=== PATIENT | female | born 1990 | race Caucasian/White ===

== ENCOUNTER 2016-09-02 17:16 | Emergency (ER) | payer OTHER ==
[2016-09-02 17:39] VITALS: BP 111/68; PULSE 65; TEMP 98.1; BMI 29.0
[2016-09-02] MEDS ORDERED: ACETAMINOPHEN 325 MG TABLET (FP) PO ONE (18:01)
[2016-09-02] MEDS ORDERED: SODIUM CHLORIDE 1,000 ML IV STA (18:01)
[2016-09-02] MEDS ORDERED: MAG HYDROX/AL HYDROX/SIMETH 30 ML UNIT-DOSE CUP PO ONE (18:01)
[2016-09-02] MEDS ORDERED: ONDANSETRON 4 MG/2 ML VIAL IVPB ONE (18:01)
[2016-09-02] MEDS ORDERED: FAMOTIDINE 20 MG/50 ML IVPB 50 ML IVPB ONE ×2 (18:01→18:15)
[2016-09-02] MEDS ORDERED: ACETAMINOPHEN 325 MG TABLET (FP) ONE (18:14)
[2016-09-02] MEDS ORDERED: MAG HYDROX/AL HYDROX/SIMETH 30 ML UNIT-DOSE CUP ONE (18:15)
[2016-09-02] MEDS ORDERED: ONDANSETRON 4 MG/2 ML VIAL ONE (18:15)
[2016-09-02 18:36] LABS: URINE APPEARANCE CLEAR; URINE BILIRUBIN NEGATIVE (NEGATIVE); URINE BLOOD NEGATIVE (NEGATIVE); URINE COLOR STRAW; URINE GLUCOSE (UA) NEGATIVE (NEGATIVE); URINE KETONE 1+ (NEGATIVE); URINE LEUK ESTERASE NEGATIVE (NEGATIVE); URINE NITRITE NEGATIVE (NEGATIVE); URINE PROTEIN NEGATIVE (NEGATIVE); URINE UROBILINOGEN NEGATIVE E.U./dl (0.2-1.0)
--- NOTE | 2016-09-02 18:41 | PDOC ---
History of Present Illness - General History Source: Patient, Parent(s) (Mother) Exam Limitations: No Limitations - History of Present Illness Initial Comments: 09/02/16 19:49 The patient is a 25 year old female, with no significant past medical history, who presents to the emergency department with nausea, vomiting and left lower quadrant pain for the past 2 days. The patient reports multiple episodes of both vomiting and diarrhea over the past 2 days. The patient reports feeling generally weak and reports a decreased appetite secondary to nausea and vomiting. The patient denies eating any bad foods, sick contacts or any recent travel. The patient denies fever, chills or any dysuria. The patient's mother is at the bedside. Allergies: None reported. Past Surgical History: None reported. Social History: Non smoker. Denies alcohol or drug use. PCP: Dr. Ishmael Groves <Antonella Kumar - Last Filed: 09/02/16 22:49> - General History Source: Patient Exam Limitations: No Limitations <Bubba Lama - Last Filed: 09/02/16 23:00> - General Chief Complaint: Pain, Acute Stated Complaint: STOMACH ACHE/VOMITING Time Seen by Provider: 09/02/16 17:48 Past History <Antonella Kumar - Last Filed: 09/02/16 22:49> - Psycho/Social/Smoking Cessation Hx Suicidal Ideation: No Smoking History: Current every day smoker Have you smoked in the past 12 months: Yes Number of Cigarettes Smoked Daily: 3 Information on smoking cessation initiated: No Hx Alcohol Use: No Drug/Substance Use Hx: No <Bubba Lama - Last Filed: 09/02/16 23:00> - Past Medical History Allergies/Adverse Reactions: Allergies Allergy/AdvReac Type Severity Reaction Status Date / Time No Known Allergies Allergy Verified 09/02/16 17:36 Home Medications: Ambulatory Orders Mag Hydrox/Al Hydrox/Simeth [Mylanta Suspension -] 30 ml PO Q6H PRN #1 bottle Naproxen [Naprosyn -] 500 mg PO BID PRN #20 tablet 09/02/16 Ondansetron HCl [Zofran] 4 mg PO Q6H PRN #20 tablet 09/02/16 Ranitidine HCl [Zantac] 150 mg PO BID PRN #20 tablet 09/02/16 Review of Systems - Review of Systems Able to Perform ROS?: Yes Comments:: 09/02/16 19:46 GENERAL/CONSTITUTIONAL: +Generalized weakness, decreased appetite. No fever or chills. HEAD, EYES, EARS, NOSE AND THROAT: No change in vision. No ear pain or discharge. No sore throat. CARDIOVASCULAR: No chest pain or shortness of breath. RESPIRATORY: No cough, wheezing, or hemoptysis. GASTROINTESTINAL: +Nausea, vomiting, diarrhea, abdominal pain. No constipation. GENITOURINARY: No dysuria, frequency, or change in urination. MUSCULOSKELETAL: No joint or muscle swelling or pain. No neck or back pain. SKIN: No rash. NEUROLOGIC: No headache, vertigo, loss of consciousness, or change in strength/ sensation. ENDOCRINE: No increased thirst. No abnormal weight change. HEMATOLOGIC/LYMPHATIC: No anemia, easy bleeding, or history of blood clots. ALLERGIC/IMMUNOLOGIC: No hives or skin allergy. <Antonella Kumar - Last Filed: 09/02/16 22:49> *Physical Exam - Vital Signs Last Vital Signs Temp Pulse Resp BP Pulse Ox 98.1 F 65 19 111/68 100 09/02/16 17:36 09/02/16 17:36 09/02/16 17:36 09/02/16 17:36 09/02/16 17:36 - Physical Exam Comments: 09/02/16 19:46 GENERAL: Awake, alert, and fully oriented, in no acute distress. HEAD: No signs of trauma. EYES: PERRLA, EOMI, sclera anicteric, conjunctiva clear. ENT: Dry mucosa. Auricles normal inspection, hearing grossly normal, nares patent, oropharynx clear without exudates. NECK: Normal ROM, supple, no lymphadenopathy, JVD, or masses. LUNGS: Breath sounds equal, clear to auscultation bilaterally. No wheezes, and no crackles. HEART: Regular rate and rhythm, normal S1 and S2, no murmurs, rubs or gallops. ABDOMEN: LLQ tenderness to palpation. Soft, normoactive bowel sounds. No guarding, no rebound. No masses. EXTREMITIES: Normal range of motion, no edema. No clubbing or cyanosis. No cords , erythema, or tenderness. NEUROLOGICAL: Cranial nerves II through XII intact. Normal speech, normal gait. SKIN: Warm, dry, normal turgor, no rashes or lesions noted. <Antonella Kumar - Last Filed: 09/02/16 22:49> - Vital Signs Last Vital Signs Temp Pulse Resp BP Pulse Ox 98.1 F 65 19 111/68 100 09/02/16 17:36 09/02/16 17:36 09/02/16 17:36 09/02/16 17:36 09/02/16 17:36 <Bubba Lama - Last Filed: 09/02/16 23:00> ED Treatment Course - LABORATORY CBC & Chemistry Diagram: 09/02/16 18:12 09/02/16 18:12 - ADDITIONAL ORDERS Additional order review: Laboratory Results 09/02/16 09/02/16 18:12 18:12 Sodium 139 Potassium 3.3 L Chloride 103 Carbon Dioxide 25 Anion Gap 11 BUN 6 L Creatinine 0.7 Creat Clearance w eGFR > 60 Random Glucose 90 Calcium 9.1 Magnesium 1.7 L Total Bilirubin 0.5 AST 12 L ALT 15 Alkaline Phosphatase 68 Total Protein 8.0 Albumin 4.4 Lipase 102 Serum , Qual Negative Urine Color Straw Urine Appearance Clear Urine pH 6.0 Ur Specific [place] 1.003 Urine Protein Negative Urine Glucose (UA) Negative Urine Ketones 1+ H Urine Blood Negative Urine Nitrite Negative Urine Bilirubin Negative Urine Urobilinogen Negative Ur Leukocyte Esterase Negative 09/02/16 18:12 RBC 3.89 MCV 99.2 H MCHC 34.4 RDW 12.5 MPV 9.3 Neutrophils % 71.0 Lymphocytes % 22.7 Monocytes % 5.9 Eosinophils % 0.1 Basophils % 0.3 - Medications Given in the ED: ED Medications Discontinued Medications Generic Name Dose Route Start Last Admin Trade Name Tonyq PRN Reason Stop Dose Admin Acetaminophen 650 mg 09/02/16 18:01 09/02/16 18:24 Tylenol - PO 09/02/16 18:02 650 mg ONCE ONE Administration Al Hydroxide/Mg Hydroxide 30 ml 09/02/16 18:01 09/02/16 18:24 Mylanta Oral Suspension - PO 09/02/16 18:02 30 ml ONCE ONE Administration Famotidine/Sodium Chloride 50 mls @ 100 mls/hr 09/02/16 18:01 09/02/16 18:28 Pepcid 20 Mg Premixed Ivpb - IVPB 09/02/16 18:30 100 mls/hr ONCE ONE Administration Sodium Chloride 1,000 mls @ 1,000 mls/hr 09/02/16 18:01 09/02/16 18:28 Normal Saline - IV 09/02/16 19:00 1,000 mls/hr ASDIR STA Administration Ondansetron HCl 4 mg 09/02/16 18:01 09/02/16 18:24 Zofran Injection IVPB 09/02/16 18:02 4 mg ONCE ONE Administration <Antonella Kumar - Last Filed: 09/02/16 22:49> - LABORATORY CBC & Chemistry Diagram: 09/02/16 18:12 09/02/16 18:12 - RADIOLOGY Radiology Studies Ordered: Category Date Time Status ABDOMEN & PELVIS CT WITH CONTR [CT] Stat CT Scan 09/02/16 18:05 Ordered - Medications Given in the ED: ED Medications Discontinued Medications Generic Name Dose Route Start Last Admin Trade Name Tonyq PRN Reason Stop Dose Admin Acetaminophen 650 mg 09/02/16 18:01 09/02/16 18:24 Tylenol - PO 09/02/16 18:02 650 mg ONCE ONE Administration Al Hydroxide/Mg Hydroxide 30 ml 09/02/16 18:01 09/02/16 18:24 Mylanta Oral Suspension - PO 09/02/16 18:02 30 ml ONCE ONE Administration Ondansetron HCl 4 mg 09/02/16 18:01 09/02/16 18:24 Zofran Injection IVPB 09/02/16 18:02 4 mg ONCE ONE Administration <Bubba Lama - Last Filed: 09/02/16 23:00> Medical Decision Making - Medical Decision Making 09/02/16 21:05 EXAM: CT/ABDOMEN & PELVIC CT WITH CONTR Reviewed By: Dr. Junior Ferrer IMPRESSION: Masslike density in the right adnexa measuring 4 x 3.4 cm versus a prominent ovary. Bilateral adnexal cystic densities, as described above. Minimal free fluid in the cul-de-sac. Small amount of free fluid in the endometrial cavity. Further evaluation with pelvic ultrasound, transabdominal and transvaginal recommended. EXAM: US/TRANSVAGINAL ULTRASOUND Reviewed By: Dr. Junior Ferrer IMPRESSION: Fibroid uterus, as described above. Both ovaries appear unremarkable with bilateral small simple cysts/follicles identified and with normal vascular flow. <Antonella Kumar - Last Filed: 09/02/16 22:49> - Medical Decision Making 09/02/16 18:27 A portion of this note was documented by scribe services under my direction. I have reviewed the details of the note, within reason, and agree with the documentation with the following case summary and management plan written by me. Patient treated in the ED. Nursing notes are reviewed and incorporated into the medical decision-making. Vital signs reviewed. Peripheral IV access obtained by the nurse, laboratory studies are drawn and sent, reviewed and interpreted by myself. Vital Signs Temp Pulse Resp BP Pulse Ox 98.1 F 65 19 111/68 100 09/02/16 17:36 09/02/16 17:36 09/02/16 17:36 09/02/16 17:36 09/02/16 17:36 25-year-old female with no past medical history presents with left lower quadrant pain, nausea, vomiting, diarrhea for the last 2 days. Denies sick contacts, recent travels. Denies fevers. Denies bad foods. Differential includes gastroenteritis, colitis. We'll obtain labs, CAT scan abdomen pelvis. Treat symptoms and reassess. 09/02/16 22:53 CBC, BMP 09/02/16 18:12 09/02/16 18:12 CMP Sodium 139 mmol/L (136-145) 09/02/16 18:12 Potassium 3.3 mmol/L (3.5-5.1) L 09/02/16 18:12 Chloride 103 mmol/L (98-107) 09/02/16 18:12 Carbon Dioxide 25 mmol/L (21-32) 09/02/16 18:12 Anion Gap 11 (8-16) 09/02/16 18:12 BUN 6 mg/dL (7-18) L 09/02/16 18:12 Creatinine 0.7 mg/dL (0.55-1.02) 09/02/16 18:12 Creat Clearance w eGFR > 60 (>60) 09/02/16 18:12 Random Glucose 90 mg/dL (74-106) 09/02/16 18:12 Calcium 9.1 mg/dL (8.5-10.1) 09/02/16 18:12 Magnesium 1.7 mg/dL (1.8-2.4) L 09/02/16 18:12 Total Bilirubin 0.5 mg/dL (0.2-1.0) 09/02/16 18:12 AST 12 U/L (15-37) L 09/02/16 18:12 ALT 15 U/L (12-78) 09/02/16 18:12 Alkaline Phosphatase 68 U/L (45-117) 09/02/16 18:12 Total Protein 8.0 g/dl (6.4-8.2) 09/02/16 18:12 Albumin 4.4 g/dl (3.4-5.0) 09/02/16 18:12 Lipase 102 U/L (73-393) 09/02/16 18:12 Serum , Qual Negative 09/02/16 18:12 Urine Test Results Urine Color Straw 09/02/16 18:12 Urine Appearance Clear 09/02/16 18:12 Urine pH 6.0 (5.0-8.0) 09/02/16 18:12 Ur Specific [place] 1.003 (1.001-1.035) 09/02/16 18:12 Urine Protein Negative (NEGATIVE) 09/02/16 18:12 Urine Glucose (UA) Negative (NEGATIVE) 09/02/16 18:12 Urine Ketones 1+ (NEGATIVE) H 09/02/16 18:12 Urine Blood Negative (NEGATIVE) 09/02/16 18:12 Urine Nitrite Negative (NEGATIVE) 09/02/16 18:12 Urine Bilirubin Negative (NEGATIVE) 09/02/16 18:12 Ur Leukocyte Esterase Negative (NEGATIVE) 09/02/16 18:12 CAT scan abdomen pelvis reviewed. Demonstrates masslike density in the right adnexa measuring 4 x 3.4 cm versus a prominent ovary. Bilateral adnexal cystic densities as described. Transvaginal ultrasound obtained given the findings on CAT scan. Demonstrates ovarian cysts and fibroids. Patient's was reassessed and she reports feeling significant better. I instructed the patient that her CAT scan ultrasound findings likely represent fibroids and ovarian cyst. Patient's mother is at the bedside and reports that she has a strong family history of this. They have an education consultant and labor relations or personnel negotiator that they can follow-up with. Given these findings, patient may potentially be having gastroenteritis. We'll discharge patient with return precautions given. I discussed the physical exam findings, ancillary test results and final diagnoses with the patient. I answered all of the patient's questions. The patient was satisfied with the care received and felt comfortable with the discharge plan and treatment plan. The patient will call their primary care physician within 24 hours to arrange follow-up and will return to the Emergency Department with any new, persistant or worsening symptoms. <Bubba Lama - Last Filed: 09/02/16 23:00> *DC/Admit/Observation/Transfer - Attestations Scribe Attestion: 09/02/16 19:43 Documentation prepared by Antonella Kumar, acting as medical liaison for Bubba Lama MD. <Antonella Kumar - Last Filed: 09/02/16 22:49> - Discharge Dispostion Admit: No <uBbba Lama - Last Filed: 09/02/16 23:00> Diagnosis at time of Disposition: Gastroenteritis Fibroid Qualifiers: Uterine leiomyoma location: unspecified location Qualified Code(s): D25.9 - Leiomyoma of uterus, unspecified - Discharge Dispostion Disposition: HOME Condition at time of disposition: Improved - Prescriptions Prescriptions: Mag Hydrox/Al Hydrox/Simeth [Mylanta Suspension -] 30 ml PO Q6H PRN #1 bottle PRN Reason: Abdominal Pain Naproxen [Naprosyn -] 500 mg PO BID PRN #20 tablet PRN Reason: Pain Ranitidine HCl [Zantac] 150 mg PO BID PRN #20 tablet PRN Reason: Abdominal Pain Ondansetron HCl [Zofran] 4 mg PO Q6H PRN #20 tablet PRN Reason: Nausea - Referrals Referrals: Ishmael Groves MD [Primary Care Provider] - - Patient Instructions Printed Discharge Instructions: DI for Uterine Fibroids, Facts About Fibroids, DI for Ovarian Cyst, DI for Viral Gastroenteritis -- Adult Additional Instructions: Please drink plenty of fluids and rest. Please take the medications as prescribed. Follow-up with your education consultant and labor relations or personnel negotiator.
[2016-09-02 18:44] LABS: BASOPHIL 0.3 % (0-2.0); EOSINOPHIL 0.1 % (0-4.5); MCH 34.1 pg (25.7-33.7); MCHC 34.4 g/dl (32.0-36.0); MEAN CELL VOLUME 99.2 fl (80-96); MEAN PLT VOLUME 9.3 fl (7.5-11.1); PLATELET COUNT 219 K/MM3 (134-434); RDW 12.5 % (11.6-15.6); WHITE BLOOD COUNT 8.7 K/mm3 (4.0-10.0)
[2016-09-02 19:10] LABS: ALBUMIN 4.4 g/dl (3.4-5.0); ALK PHOS 68 U/L (45-117); ANION GAP 11 (8-16); BILIRUBIN,TOTAL 0.5 mg/dL (0.2-1.0); CALCIUM 9.1 mg/dL (8.5-10.1); CO2 25 mmol/L (21-32); COCKROFT - GAULT 159.7235; CREATININE 0.7 mg/dL (0.55-1.02); GLUCOSE,RANDOM 90 mg/dL (74-106); MAGNESIUM 1.7 mg/dL (1.8-2.4); SGOT/AST 12 U/L (15-37); SGPT/ALT 15 U/L (12-78)
[2016-09-02 23:10] LABS: PLATELET COMMENT2 RARE GIANT PLTS; PLATELET ESTIMATE ADEQUATE (NORMAL)
== END 2016-09-02 23:27 | disposition home or self-care (01) ==
LOC: JER 17:16
PROC: 3E033GC Introduction of Other Therapeutic Substance into Peripheral Vein, Percutaneous Approach (ICD-10-PCS; principal; 2016-09-02)
DX: K52.9 Noninfective gastroenteritis and colitis, unspecified (principal); D25.9 Leiomyoma of uterus, unspecified
CPT/HCPCS: 36415; 74177-TC; 76830-TC; 80053; 81003; 83690; 83735; 84703; 85025; 87086; 96365; 96375; 99283-25

== ENCOUNTER 2016-10-14 04:54 | Emergency (ER) | payer OTHER ==
[2016-10-14 05:13] VITALS: BMI 28.3
[2016-10-14] MEDS ORDERED: FAMOTIDINE 20 MG/50 ML IVPB 50 ML IVPB ONE ×2 (05:20→05:32)
[2016-10-14] MEDS ORDERED: ONDANSETRON 4 MG/2 ML VIAL IVPUSH ONE (05:20)
[2016-10-14] MEDS ORDERED: PANTOPRAZOLE SODIUM 40 MG in SODIUM CHLORIDE 100 ML IVPB ONE (05:20)
[2016-10-14] MEDS ORDERED: MAG HYDROX/AL HYDROX/SIMETH 30 ML UNIT-DOSE CUP PO ONE (05:20)
[2016-10-14] MEDS ORDERED: SODIUM CHLORIDE 0.9% 1000 ML INFUS.BAG IV ONE (05:20)
[2016-10-14] MEDS ORDERED: PANTOPRAZOLE SODIUM 100 ML IVPB ONE (05:31)
[2016-10-14] MEDS ORDERED: MAG HYDROX/AL HYDROX/SIMETH 30 ML UNIT-DOSE CUP ONE (05:31)
[2016-10-14] MEDS ORDERED: ONDANSETRON 4 MG/2 ML VIAL ONE (05:32)
[2016-10-14] MEDS ORDERED: POTASSIUM CHLORIDE TABS 20 MEQ TABLET.ER (FP) PO ONE ×3 (06:17→06:30)
--- NOTE | 2016-10-14 06:17 | PDOC ---
History of Present Illness - General Chief Complaint: Nausea/Vomiting Stated Complaint: ABDOMINAL PAIN/VOMITING Time Seen by Provider: 10/14/16 05:18 - History of Present Illness Initial Comments: 10/14/16 05:30 CHIEF COMPLAINT: vomiting/diarrhea HISTORY OF PRESENT ILLNESS: 26 yo F with hx of gastritis presents to ED with abdominal pain, vomiting, and diarrhea since 11 pm last night. Patient reports that her last meal prior to the onset of pain and vomiting was chicken wings. She reports 4-5 episodes of vomiting and "way more episodes of diarrhea." She denies any fever or chills, recent travel or sick contacts. Patient was treated in this ER one month ago for the same. No recent travel or sick contacts. PAST MEDICAL HISTORY: Denies past medical history FAMILY HISTORY: Denies SOCIAL HISTORY: Denies tobacco, alcohol use. Daily marijuana use. SURGICAL HISTORY: Denies ALLERGIES: No known drug allergies REVIEW OF SYSTEMS General/Constitutional: Denies fever or chills. Denies weakness, weight change. HEENT: Denies change in vision. Denies ear pain or discharge. Denies sore throat. Cardiovascular: Denies chest pain or shortness of breath. Respiratory: Denies cough, wheezing, or hemoptysis. Gastrointestinal: Abdominal pain, vomiting, diarrhea. Denies constipation. Denies rectal bleeding. Genitourinary: Denies dysuria, frequency, or change in urination. Musculoskeletal: Denies joint or muscle swelling or pain. Denies neck or back pain. Skin and breasts: Denies rash. PHYSICAL EXAM General Appearance: Well-appearing, appropriately dressed. No apparent distress. HEENT: EOMI, PERRLA. No conjunctival pallor. No photophobia, scleral icterus. Respiratory/Chest: Lungs CTAB. Cardiovascular: RRR. S1, S2. Gastrointestinal/Abdominal: Epigastric tenderness. Hyperactive bowel sounds. Abdomen soft, non-distended. No organomegaly, pulsatile mass, guarding, hernia , hepatomegaly, splenomegaly. Musculoskeletal/Extremities: Normal inspection. FROM of all extremities, normal capillary refill. Pelvis Stable. No CVA tenderness. No tenderness to extremities, pedal edema, swelling, erythema or deformity. Integumentary: Appropriate color, dry, warm. 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 Fully oriented, alert. Appropriate mood/affect. Motor strength 5/5. No appreciable EOM palsy, facial droop or sensory deficit. Past History - Past Medical History Allergies/Adverse Reactions: Allergies Allergy/AdvReac Type Severity Reaction Status Date / Time No Known Allergies Allergy Verified 10/14/16 06:06 Home Medications: Ambulatory Orders Ciprofloxacin [Cipro -] 500 mg PO BID #14 tablet 10/14/16 Metronidazole [Flagyl -] 500 mg PO TID #21 tablet 10/14/16 - Psycho/Social/Smoking Cessation Hx Anxiety: No Suicidal Ideation: No Smoking History: Never smoked Have you smoked in the past 12 months: No Number of Cigarettes Smoked Daily: 3 Hx Alcohol Use: No Drug/Substance Use Hx: Yes (marijuana) Substance Use Type: None *Physical Exam - Vital Signs Last Vital Signs Temp Pulse Resp BP Pulse Ox 97.1 F L 74 20 113/87 99 10/14/16 05:09 10/14/16 05:09 10/14/16 05:09 10/14/16 05:09 10/14/16 05:09 ED Treatment Course - LABORATORY CBC & Chemistry Diagram: 10/14/16 05:50 10/14/16 07:52 Medical Decision Making - Medical Decision Making 10/14/16 06:39 26 yo F with no PMH presents to ED with abdominal pain, vomiting, and diarrhea since 11 pm last night. -CBC, CMP, lipase -IVF, Zofran, Pepcid, Protonix Patient reassessed, states she is still having pain to her abdomen after just having 2 episodes of diarrhea. Patient reports her nausea/vomiting has now resolved. -Loperamide 10/14/16 06:59 Patient continues to have epigastric tenderness. On reassessment patient now has RLQ TTP. Will reassess. 10/14/16 07:01 Case discussed in detail with oncoming emergency provider including history, physical exam and ancillary studies. In brief, this patient is being seen in the ED for a chief complaint of: I have completed the initial assessment interview note and have ordered the following labs: CBC, CMP, lipase, UA, Ucx I have reviewed the following results: none Pending results: all Plan for disposition as follows: pending Oncoming NPA Elvira has assumed care for the patient and will complete the evaluation and treatment. *DC/Admit/Observation/Transfer Diagnosis at time of Disposition: Colitis - Discharge Dispostion Disposition: HOME Condition at time of disposition: Improved - Prescriptions Prescriptions: Ciprofloxacin [Cipro -] 500 mg PO BID #14 tablet Metronidazole [Flagyl -] 500 mg PO TID #21 tablet - Referrals Referrals: Todd Kraft MD [Staff Physician] - Call tomorrow Ishmael Groves MD [Primary Care Provider] - - Patient Instructions Printed Discharge Instructions: DI for Colitis Additional Instructions: Discharge Instructions: -2 prescriptions were sent to your pharmacy; please take as prescribed for 7 days -Do not drink alcohol while taking the medications -Drink at least 64oz of fluids daily -Call Dr. Barnett on Monday to schedule follow up appointment -Return to the ER with any worsening or concerning symptoms
[2016-10-14] MEDS ORDERED: LOPERAMIDE HCL 2 MG CAPSULE PO ONE (06:21)
[2016-10-14 06:22] LABS: URINE APPEARANCE CLEAR; URINE BILIRUBIN NEGATIVE (NEGATIVE); URINE BLOOD NEGATIVE (NEGATIVE); URINE COLOR LTYELLOW; URINE GLUCOSE (UA) NEGATIVE (NEGATIVE); URINE KETONE 2+ (NEGATIVE); URINE LEUK ESTERASE NEGATIVE (NEGATIVE); URINE NITRITE NEGATIVE (NEGATIVE); URINE PROTEIN NEGATIVE (NEGATIVE); URINE UROBILINOGEN NEGATIVE E.U./dl (0.2-1.0)
--- NOTE | 2016-10-14 06:22 | PDOC ---
[id number] 10/14/16 05:09 10/14/16 05:09 10/14/16 05:09 10/14/16 05:09 10/14/16 05:11 ED Treatment Course - LABORATORY CBC & Chemistry Diagram: 10/14/16 05:50 10/14/16 07:52 - Medications Given in the ED: ED Medications Discontinued Medications Generic Name Dose Route Start Last Admin Trade Name Armando PRN Reason Stop Dose Admin Al Hydroxide/Mg Hydroxide 30 ml 10/14/16 05:20 10/14/16 05:25 Mylanta Oral Suspension - PO 10/14/16 05:21 30 ml ONCE ONE Administration Pantoprazole Sodium 40 mg/ 100 mls @ 200 mls/hr 10/14/16 05:20 10/14/16 06:05 Sodium Chloride IVPB 10/14/16 05:49 200 mls/hr ONCE ONE Administration Famotidine/Sodium Chloride 50 mls @ 100 mls/hr 10/14/16 05:20 10/14/16 05:30 Pepcid 20 Mg Premixed Ivpb - IVPB 10/14/16 05:49 100 mls/hr ONCE ONE Administration Ondansetron HCl 8 mg 10/14/16 05:20 10/14/16 05:25 Zofran Injection IVPUSH 10/14/16 05:21 8 mg ONCE ONE Administration Sodium Chloride 1,000 ml 10/14/16 05:20 10/14/16 05:30 Normal Saline - IV 10/14/16 05:21 1,000 ml ONCE ONE Administration Medical Decision Making - Medical Decision Making 10/14/16 06:22 agree with care from BOWEN Muniz *DC/Admit/Observation/Transfer Diagnosis at time of Disposition: Colitis - Discharge Dispostion Disposition: HOME Condition at time of disposition: Improved - Prescriptions Prescriptions: Ciprofloxacin [Cipro -] 500 mg PO BID #14 tablet Metronidazole [Flagyl -] 500 mg PO TID #21 tablet - Referrals Referrals: Todd Kraft MD [Staff Physician] - Call tomorrow Ishmael Groves MD [Primary Care Provider] - - Patient Instructions Printed Discharge Instructions: DI for Colitis Additional Instructions: Discharge Instructions: -2 prescriptions were sent to your pharmacy; please take as prescribed for 7 days -Do not drink alcohol while taking the medications -Drink at least 64oz of fluids daily -Call Dr. Barnett on Monday to schedule follow up appointment -Return to the ER with any worsening or concerning symptoms
[2016-10-14] MEDS ORDERED: LOPERAMIDE HCL 2 MG CAPSULE ONE (06:25)
[2016-10-14 06:51] LABS: BASOPHIL 0.3 % (0-2.0); MCHC 33.7 g/dl (32.0-36.0); MEAN CELL VOLUME 100.9 fl (80-96); MEAN PLT VOLUME 10.8 fl (7.5-11.1); NEUTROPHILS 83.4 % (42.8-82.8); PLATELET COUNT 175 K/MM3 (134-434); RDW 12.9 % (11.6-15.6); WHITE BLOOD COUNT 9.5 K/mm3 (4.0-10.0)
--- NOTE | 2016-10-14 07:45 | PDOC ---
ED Treatment Course - LABORATORY CBC & Chemistry Diagram: 10/14/16 05:50 10/14/16 07:52 - ADDITIONAL ORDERS Additional order review: Laboratory Results 10/14/16 05:58 Urine Color Ltyellow Urine Appearance Clear Urine pH 5.0 Urine Protein Negative Urine Glucose (UA) Negative Urine Ketones 2+ H Urine Blood Negative Urine Nitrite Negative Urine Bilirubin Negative Urine Urobilinogen Negative Ur Leukocyte Esterase Negative Urine HCG, Qual Negative - Medications Given in the ED: ED Medications Discontinued Medications Generic Name Dose Route Start Last Admin Trade Name Armando PRN Reason Stop Dose Admin Al Hydroxide/Mg Hydroxide 30 ml 10/14/16 05:20 10/14/16 05:25 Mylanta Oral Suspension - PO 10/14/16 05:21 30 ml ONCE ONE Administration Pantoprazole Sodium 40 mg/ 100 mls @ 200 mls/hr 10/14/16 05:20 10/14/16 06:05 Sodium Chloride IVPB 10/14/16 05:49 200 mls/hr ONCE ONE Administration Famotidine/Sodium Chloride 50 mls @ 100 mls/hr 10/14/16 05:20 10/14/16 05:30 Pepcid 20 Mg Premixed Ivpb - IVPB 10/14/16 05:49 100 mls/hr ONCE ONE Administration Loperamide HCl 4 mg 10/14/16 06:21 10/14/16 06:33 Imodium - PO 10/14/16 06:22 4 mg ONCE ONE Administration Ondansetron HCl 8 mg 10/14/16 05:20 10/14/16 05:25 Zofran Injection IVPUSH 10/14/16 05:21 8 mg ONCE ONE Administration Potassium Chloride 20 meq 10/14/16 06:17 10/14/16 06:33 K-Dur - PO 10/14/16 06:18 20 meq ONCE ONE Administration Sodium Chloride 1,000 ml 10/14/16 05:20 10/14/16 05:30 Normal Saline - IV 10/14/16 05:21 1,000 ml ONCE ONE Administration Progress Note - Progress Note Progress Note: I have received report from BOWEN Muniz regarding this patient. Pt's initial chief complaint: abd pain, vomiting and diarrhea since last night. Pt's work up completed prior to sign out: labs, UA, hcg Pt treatment given from prior staff: Imodium, maalox, IVF, zofran, pepcid, protonix Pt plan to be completed: Awaiting lab results Dispo: Pending Medical Decision Making - Medical Decision Making A/P: 26 y/o afebrile female with PMH gastritis c/o abd pain, vomiting and diarrhea since 11pm last night. Pt was initially evaluated by BOWEN Muniz. Awaiting labs and reassessment. CT scan abd/pelvis IMPRESSION: Diffuse thickening of the colon, consistent with colitis, inflammatory over infectious. Normal appearing appendix. Pt was given her results. Informed her that 2 prescriptions were called to her pharmacy and she should take for entire 7 days. instructed her to drink plenty of fluids, and call Dr. Kraft on Monday for follow up appointment. Instructed her to return to the ER with any worsening or concerning symptoms. The patient verbalizes understanding of all instructions, has no further questions and is awaiting discharge. *DC/Admit/Observation/Transfer Diagnosis at time of Disposition: Colitis - Discharge Dispostion Disposition: HOME Condition at time of disposition: Improved - Prescriptions Prescriptions: Ciprofloxacin [Cipro -] 500 mg PO BID #14 tablet Metronidazole [Flagyl -] 500 mg PO TID #21 tablet - Referrals Referrals: Ishmael Groves MD [Primary Care Provider] - Todd Kraft MD [Staff Physician] - Call tomorrow - Patient Instructions Printed Discharge Instructions: DI for Colitis Additional Instructions: Discharge Instructions: -2 prescriptions were sent to your pharmacy; please take as prescribed for 7 days -Do not drink alcohol while taking the medications -Drink at least 64oz of fluids daily -Call Dr. Barnett on Monday to schedule follow up appointment -Return to the ER with any worsening or concerning symptoms
[2016-10-14 08:53] LABS: ALBUMIN 3.8 g/dl (3.4-5.0); ALK PHOS 56 U/L (45-117); ANION GAP 9 (8-16); BILIRUBIN,TOTAL 0.4 mg/dL (0.2-1.0); CALCIUM 8.4 mg/dL (8.5-10.1); CO2 21 mmol/L (21-32); COCKROFT - GAULT 174.4795; CREATININE 0.6 mg/dL (0.55-1.02); GLUCOSE,RANDOM 92 mg/dL (74-106); SGOT/AST 12 U/L (15-37); SGPT/ALT 14 U/L (12-78); TOT PROT 6.7 g/dl (6.4-8.2)
[2016-10-14] MEDS ORDERED: LEVOFLOXACIN 750 MG TABLET PO ONE (11:17)
[2016-10-14] MEDS ORDERED: metroNIDAZOLE 500 MG TABLET PO ONE (11:17)
[2016-10-14] MEDS ORDERED: metroNIDAZOLE 250 MG TABLET ONE (11:40)
[2016-10-14] MEDS ORDERED: LEVOFLOXACIN 500 MG TABLET (FP) ONE (11:40)
[2016-10-14] MEDS ORDERED: LEVOFLOXACIN 250 MG TABLET (FP) ONE (11:40)
[2016-10-14 11:58] VITALS: BP 119/74; PULSE 69; TEMP 97.9
== END 2016-10-14 12:02 | disposition home or self-care (01) ==
LOC: JER 04:54
PROC: 3E033GC Introduction of Other Therapeutic Substance into Peripheral Vein, Percutaneous Approach (ICD-10-PCS; principal; 2016-10-14)
PROC: 3E033GC Introduction of Other Therapeutic Substance into Peripheral Vein, Percutaneous Approach (ICD-10-PCS; 2016-10-14)
PROC: 3E033GC Introduction of Other Therapeutic Substance into Peripheral Vein, Percutaneous Approach (ICD-10-PCS; 2016-10-14)
DX: K52.9 Noninfective gastroenteritis and colitis, unspecified (principal)
CPT/HCPCS: 36415; 74177-TC; 80053; 81003; 83690; 84703; 85025; 87086; 96365; 96367; 96375; 99284-25; Q9967

== ENCOUNTER 2020-02-08 17:20 | Emergency (ER) | payer OTHER ==
[2020-02-08 17:34] VITALS: BP 133/66; PULSE 90; TEMP 97.7; BMI 30.7
[2020-02-08] MEDS ORDERED: IBUPROFEN 400 MG TABLET (FP) PO ONE ×2 (17:59→18:00)
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
== END 2020-02-08 18:30 | disposition home or self-care (01) ==
LOC: JER 17:20
DX: S63.502A Unspecified sprain of left wrist, initial encounter (principal)
CPT/HCPCS: 73030-TC-LT-FY; 73090-TC-LT-FY; 99284-25

== ENCOUNTER 2021-03-22 00:47 | Emergency (ER) | payer OTHER ==
[2021-03-22] MEDS ORDERED: SODIUM CHLORIDE 0.9% 500 ML INFUS.BAG IV ONE (01:08)
[2021-03-22] MEDS ORDERED: ONDANSETRON 4 MG/2 ML VIAL IVPUSH ONE (01:08)
[2021-03-22 01:13] VITALS: TEMP 98.8; BMI 29.0
[2021-03-22] MEDS ORDERED: ONDANSETRON 4 MG/2 ML VIAL ONE (01:17)
[2021-03-22 01:40] LABS: BASO % 0.8 % (0-2.0); EOS % 0.2 % (0-4.5); HEMATOCRIT 38.4 % (32.4-45.2); HEMOGLOBIN 13.3 GM/dL (10.7-15.3); LYMPH % 25.1 % (8-40); MCH 34.9 pg (25.7-33.7); MCHC 34.7 g/dl (32.0-36.0); MEAN CELL VOLUME 100.7 fl (80-96); MEAN PLT VOLUME 7.6 fl (7.5-11.1); MONO % 4.8 % (3.8-10.2); NEUT % 69.1 % (42.8-82.8); PLATELET COUNT 228 10^3/uL (134-434); RBC 3.81 M/mm3 (3.60-5.2); RDW 13.1 % (11.6-15.6); WHITE BLOOD COUNT 5.9 K/mm3 (4.0-10.0)
[2021-03-22 02:06] LABS: CHLORIDE 110 mmol/L (98-107); SODIUM 142 mmol/L (136-145)
[2021-03-22 02:08] LABS: CALCIUM 8.8 mg/dL (8.5-10.1)
[2021-03-22 02:09] LABS: ALBUMIN 4.1 g/dl (3.4-5.0); ANION GAP 4 MMOL/L (8-16); BLOOD UREA NITROGEN 9.2 mg/dL (7-18); CO2 28 mmol/L (21-32); GLUCOSE,RANDOM 104 mg/dL (74-106); MAGNESIUM 1.9 mg/dL (1.8-2.4)
[2021-03-22 02:11] LABS: SGPT/ALT 17 U/L (13-61)
[2021-03-22 02:12] LABS: CREATININE 0.8 mg/dL (0.55-1.3); SGOT/AST 21 U/L (15-37)
[2021-03-22 02:13] LABS: BILIRUBIN,TOTAL 0.2 mg/dL (0.2-1); TOT PROT 8.2 g/dl (6.4-8.2)
[2021-03-22 02:14] LABS: ALK PHOS 62 U/L (45-117)
[2021-03-22] MEDS ORDERED: SUCRALFATE 1 GM TABLET (FP) PO ONE (03:19)
[2021-03-22] MEDS ORDERED: SUCRALFATE 1 GM TABLET (FP) ONE (03:22)
[2021-03-22 03:39] VITALS: BP 123/72; PULSE 70
== END 2021-03-22 03:39 | disposition home or self-care (01) ==
LOC: JER 00:47
PROC: 3E033GC Introduction of Other Therapeutic Substance into Peripheral Vein, Percutaneous Approach (ICD-10-PCS; principal; 2021-03-22)
DX: K29.70 Gastritis, unspecified, without bleeding (principal); K29.80 Duodenitis without bleeding; F10.920 Alcohol use, unspecified with intoxication, uncomplicated
CPT/HCPCS: 36415; 80053; 80307; 83735; 84702; 85025; 93005; 93010; 96374; 99284-25